=== PATIENT | male | born 1980 | race Caucasian/White ===

== ENCOUNTER 2018-04-08 19:34 | Emergency (ER) | payer BC ==
[~2018-04-08] VITALS: Ht 193 cm; Wt 93.9 kg
[2018-04-08 19:43] VITALS: BP 143/105
[2018-04-08] MEDS ORDERED: ACETAMINOPHEN 500 MG TABLET PO ONE (20:30)
[2018-04-08] MEDS ORDERED: ACETAMINOPHEN 500 MG TABLET ONE (20:41)
== END 2018-04-08 22:07 | disposition home or self-care (01) ==
LOC: ED 21:50
DX: S43.102A Unspecified dislocation of left acromioclavicular joint, initial encounter (principal); F17.200 Nicotine dependence, unspecified, uncomplicated; V49.49XA Driver injured in collision with other motor vehicles in traffic accident, initial encounter; Y93.89 Activity, other specified; Y92.89 Other specified places as the place of occurrence of the external cause; Y99.8 Other external cause status
CPT/HCPCS: 71046; 72072; 72110; 72125; 99284

== ENCOUNTER 2019-02-21 22:23 | Emergency (ER) | payer BC ==
[~2019-02-21] VITALS: Ht 193 cm; Wt 107.0 kg
--- NOTE | 2019-02-21 23:07 | NUR ---
assessment made. chart up for MD to see.
--- NOTE | 2019-02-21 23:28 | NUR ---
ERP at bedside.
[2019-02-21] MEDS ORDERED: ONDANSETRON 2MG/ML, 2ML ONE (23:45)
[2019-02-21] MEDS ORDERED: MORPHINE SULFATE 4 MG/ML, 1ML ONE (23:45)
[2019-02-21 23:50] LABS: BASOPHILS # (AUTO) 0.01 x10^3/uL (0-0.1); BASOPHILS % (AUTO) 0 % (0-1); EOSINOPHILS % (AUTO) 1 % (1-7); LYMPHOCYTES % (AUTO) 18 % (22-44); MD NO; MEAN CORPUSCULAR HEMOGLOBIN 30.7 pg (27.5-34.5); MEAN CORPUSCULAR HGB CONC 33.8 g/dL (33.2-36.2); MEAN CORPUSCULAR VOLUME 90.9 fL (81-97); MEAN PLATELET VOLUME 7.5 fL (7.4-10.4); MONOCYTES # (AUTO) 0.98 x10^3/uL (0.2-0.8); MONOCYTES % (AUTO) 14 % (2-9); NEUTROPHILS # (AUTO) 4.77 x10^3/uL (1.8-6.8); NEUTROPHILS % (AUTO) 67 % (42-75); PLATELET COUNT 165 x10^3/uL (130-400); RED BLOOD COUNT 5.45 x10^6/uL (4.38-5.82); RED CELL DISTRIBUTION WIDTH 12.6 % (9.4-14.8)
--- NOTE | 2019-02-21 23:56 | NUR ---
IV placed. blood drawn. IVF hung. medicated for pain and nausea. dentures lab technician at bedside for EKG.
[2019-02-22] LABS: ALANINE AMINOTRANSFERASE 30 U/L (12-78); ALBUMIN 3.5 g/dL (3.4-5.0); ANION GAP 7 mmol/L (5-15); CALCIUM 8.6 mg/dL (8.5-10.1); CHLORIDE 106 mmol/L (98-107); CREATININE 1.01 mg/dL (0.7-1.3)
[2019-02-22] MEDS ORDERED: ONDANSETRON 2MG/ML, 2ML IVPush ONE
[2019-02-22] MEDS ORDERED: MORPHINE SULFATE 4 MG/ML, 1ML IVPush PRN
[2019-02-22] MEDS ORDERED: SODIUM CHLORIDE 0.9% 1,000ML IVBOLUS ONE
[2019-02-22 00:02] LABS: ALKALINE PHOSPHATASE 67 U/L (45-117); BILIRUBIN,TOTAL 0.6 mg/dL (0.2-1.0); TOTAL PROTEIN 6.5 g/dL (6.4-8.2)
[2019-02-22] MEDS ORDERED: OMNIPAQUE 350 MG/ML, 100ML BOTTLE ONE (00:46)
--- NOTE | 2019-02-22 01:43 | NUR ---
ERP at bedside for re-evaluation.
--- NOTE | 2019-02-22 01:59 | NUR ---
patient discharged with prescriptions and instruction. verbalized understanding. Work note provided.
[2019-02-22 02:00] VITALS: BP 126/64
== END 2019-02-22 02:03 | disposition home or self-care (01) ==
LOC: ED 23:42
DX: A08.4 Viral intestinal infection, unspecified (principal); E86.9 Volume depletion, unspecified; F17.200 Nicotine dependence, unspecified, uncomplicated
CPT/HCPCS: 36415; 74177; 80053; 83690; 85025; 93005; 96361; 96374; 96375; 99284; J2270; J2405; J7030; Q9967

== ENCOUNTER 2019-09-02 00:39 | Emergency (ER) | payer BC ==
[~2019-09-02] VITALS: Ht 193 cm; Wt 117.3 kg
--- NOTE | 2019-09-02 01:15 | NUR ---
Pt wheeled to room from triage. Pt changed into gown, pt in [facility] at this time, med student at bedside for pt history and assessment. shelter monitor and v/s monitors placed on pt. Educated pt on ER process and POC, pt verbalized understanding, call light within reach.
[2019-09-02] MEDS ORDERED: DIPHENHYDRAMINE 25 MG CAPSULE ONE (01:54)
[2019-09-02] MEDS ORDERED: KETOROLAC 30 MG/1 ML ONE (01:54)
[2019-09-02] MEDS ORDERED: PROCHLORPERAZINE 5 MG/ML, 2ML ONE (01:54)
[2019-09-02] MEDS ORDERED: ACETAMINOPHEN 500 MG TABLET ONE (01:55)
[2019-09-02] MEDS ORDERED: KETOROLAC 30 MG/1 ML IM ONE (02:00)
[2019-09-02] MEDS ORDERED: ACETAMINOPHEN 325 MG TABLET PO ONE (02:00)
[2019-09-02] MEDS ORDERED: PROCHLORPERAZINE 5 MG/ML, 2ML IM ONE (02:00)
[2019-09-02] MEDS ORDERED: DIPHENHYDRAMINE 25 MG CAPSULE PO ONE (02:00)
--- NOTE | 2019-09-02 02:05 | NUR ---
Pt medicated per MAR.
[2019-09-02 02:06] LABS: BASOPHILS # (AUTO) 0.03 x10^3/uL (0-0.1); BASOPHILS % (AUTO) 1 % (0-1); EOSINOPHILS # (AUTO) 0.11 x10^3/uL (0-0.4); EOSINOPHILS % (AUTO) 2 % (1-7); LYMPHOCYTES # (AUTO) 2.13 x10^3/uL (1-3.4); LYMPHOCYTES % (AUTO) 33 % (22-44); MD NO; MEAN CORPUSCULAR HGB CONC 33.8 g/dL (33.2-36.2); MEAN CORPUSCULAR VOLUME 91.6 fL (81-97); MEAN PLATELET VOLUME 7.8 fL (7.4-10.4); MONOCYTES # (AUTO) 0.51 x10^3/uL (0.2-0.8); MONOCYTES % (AUTO) 8 % (2-9); NEUTROPHILS # (AUTO) 3.63 x10^3/uL (1.8-6.8); NEUTROPHILS % (AUTO) 57 % (42-75); PLATELET COUNT 180 x10^3/uL (130-400); RED BLOOD COUNT 4.91 x10^6/uL (4.38-5.82); RED CELL DISTRIBUTION WIDTH 12.9 % (9.4-14.8)
[2019-09-02 02:09] LABS: ALBUMIN 3.6 g/dL (3.4-5.0); ANION GAP 6 mmol/L (5-15); CHLORIDE 106 mmol/L (98-107); CREATININE 1.36 mg/dL (0.7-1.3)
[2019-09-02 02:13] LABS: TROPONIN I < 0.015 ng/mL (0.000-0.045)
--- NOTE | 2019-09-02 02:45 | NUR ---
Pt resting comfortably in gurney, denies pain. Side rails up, call light within reach.
--- NOTE | 2019-09-02 03:17 | NUR ---
PT D/C WITH D/C SUMMARY AND WORK NOTE REGARDING REST AND HOME CARE INSTRUCTIONS. PT VERBALIZES UNDERSTANDING OF HOME CARE AND F/U INSTRUCTIONS. PT AMBULATES TO REGISTRATION DESK WITH STEADY GAIT FOR D/C HOME WITH PARTNER. PT DENIES ANY OTHER NEEDS PERTAINING TO THIS VISIT.
[2019-09-02 03:18] VITALS: BP 135/82
== END 2019-09-02 03:21 | disposition home or self-care (01) ==
LOC: ED 01:57
DX: R07.89 Other chest pain (principal); R42 Dizziness and giddiness; G44.219 Episodic tension-type headache, not intractable; F17.200 Nicotine dependence, unspecified, uncomplicated
CPT/HCPCS: 36415; 71045; 80048; 82040; 84484; 85025; 93005; 96372; 99284; J0780; J1885; Q0163

== ENCOUNTER 2020-03-20 01:11 | Emergency (ER) | payer BC ==
[~2020-03-20] VITALS: Ht 193 cm; Wt 115.0 kg
[2020-03-20] MEDS ORDERED: ONDANSETRON 2MG/ML, 2ML IVPush ONE (01:30)
[2020-03-20] MEDS ORDERED: SODIUM CHLORIDE 0.9% 1,000ML IVBOLUS ONE (01:30)
[2020-03-20] MEDS ORDERED: LORazepam 2 MG/ML, 1ML IVPush ONE (01:30)
[2020-03-20] MEDS ORDERED: ONDANSETRON 2MG/ML, 2ML ONE (01:33)
[2020-03-20] MEDS ORDERED: LORazepam 2 MG/ML, 1ML ONE (01:34)
[2020-03-20 01:53] LABS: BASOPHILS # (AUTO) 0.03 x10^3/uL (0-0.1); BASOPHILS % (AUTO) 1 % (0-1); EOSINOPHILS # (AUTO) 0.19 x10^3/uL (0-0.4); EOSINOPHILS % (AUTO) 3 % (1-7); LYMPHOCYTES # (AUTO) 2.18 x10^3/uL (1-3.4); LYMPHOCYTES % (AUTO) 33 % (22-44); MD NO; MEAN CORPUSCULAR HEMOGLOBIN 31.3 pg (27.5-34.5); MEAN CORPUSCULAR HGB CONC 34.4 g/dL (33.2-36.2); MEAN CORPUSCULAR VOLUME 90.8 fL (81-97); MEAN PLATELET VOLUME 7.5 fL (7.4-10.4); MONOCYTES # (AUTO) 0.57 x10^3/uL (0.2-0.8); MONOCYTES % (AUTO) 9 % (2-9); NEUTROPHILS # (AUTO) 3.62 x10^3/uL (1.8-6.8); NEUTROPHILS % (AUTO) 55 % (42-75); PLATELET COUNT 176 x10^3/uL (130-400); RED BLOOD COUNT 5.38 x10^6/uL (4.38-5.82); RED CELL DISTRIBUTION WIDTH 13.8 % (9.4-14.8)
[2020-03-20 02:05] LABS: ALANINE AMINOTRANSFERASE 81 U/L (12-78); CHLORIDE 107 mmol/L (98-107)
[2020-03-20 02:09] LABS: ALKALINE PHOSPHATASE 86 U/L (45-117); BILIRUBIN,TOTAL 0.4 mg/dL (0.2-1.0)
--- NOTE | 2020-03-20 02:15 | NUR ---
Break RN: assumed care of pt on behalf of primary RN for lunch break only. pt sleeping in position of comfort. easily arousable. no apparent distress. no family at bedside. lights dimmed for comfort
--- NOTE | 2020-03-20 03:06 | NUR ---
Pt to be DCed at this time, pt states "i can't even stand up, i'm too dizzy, nothing was fixed." Pt refuses to stand up at this time. Informed Dr Suh, no further orders, will DC upon pt able to safely stand and walk
--- NOTE | 2020-03-20 03:35 | NUR ---
Reasssessed pt readiness for DC, pt states he "does not feel comfortable, is too dizzy, can't make a sentence, can't stand up."
--- NOTE | 2020-03-20 03:40 | NUR ---
Pt ambulated in barth to nurses station to ask where restroom was, pt ambulating down barth to restroom with steady gait and no assistance
[2020-03-20 03:58] LABS: ANION GAP 11 mmol/L (5-15)
--- NOTE | 2020-03-20 04:06 | NUR ---
Pt reassessed for DC readiness, pt states he is "still dizzy and can't walk"
--- NOTE | 2020-03-20 04:23 | NUR ---
pt assisted to standing, pt ambulating steadily without assistance, PIV removed, pt put on shirt and shoes and walked to registration without difficulty
[2020-03-20 04:26] VITALS: BP 117/63
== END 2020-03-20 04:27 | disposition home or self-care (01) ==
LOC: ED 04:00
DX: F12.129 Cannabis abuse with intoxication, unspecified (principal); F41.9 Anxiety disorder, unspecified; R42 Dizziness and giddiness; R00.2 Palpitations; R10.9 Unspecified abdominal pain; R11.0 Nausea; R00.0 Tachycardia, unspecified; F17.200 Nicotine dependence, unspecified, uncomplicated
CPT/HCPCS: 36415; 80053; 85025; 93005; 96361; 96374; 96375; 99284; J2060; J2405; J7030